=== PATIENT | male | born 1975 | race American Indian/Alaskan Native ===

== ENCOUNTER 2017-04-17 16:23 | Emergency (ER) | payer OTHER, MEDICARE ==
[2017-04-17 16:23] VITALS: BMI 27.1
== END 2017-04-17 16:43 | disposition left against medical advice (07) ==
LOC: C.ER 16:23
DX: Z02.89 Encounter for other administrative examinations (principal)

== ENCOUNTER 2018-10-11 17:27 | Emergency (ER) | payer OTHER, MEDICARE ==
[2018-10-11 17:27] VITALS: BMI 44.7
[2018-10-11 17:35] VITALS: BP 138/82; PULSE 94; RESP 18; TEMP 98.5; O2SAT 100
[2018-10-11] MEDS ORDERED: Bacitracin 500 Units/gm Oint Foilpak UD ONE (17:45)
--- NOTE | 2018-10-11 18:12 | C.PDOC ---
History Of Present Illness 43 y/o male presents to ER with RAVIN for wound check to the face. Patient states that he was evaluated and had laceration repair in [facility] ER last week. Patient reports that he called [facility] to inform them that he wanted the sutures removed. [facility] brought him to the ER for suture removal. Denies having fever,chills ,and discharge. Time Seen by Provider: 10/11/18 17:41 Chief Complaint (Nursing): Abnormal Skin Integrity History Per: Patient History/Exam Limitations: no limitations Past Medical History Reviewed: Historical Data, Nursing Documentation, Vital Signs Vital Signs: Last Vital Signs Temp 98.5 F 10/11/18 17:33 Pulse 94 H 10/11/18 17:33 Resp 18 10/11/18 17:33 BP 138/82 10/11/18 17:33 Pulse Ox 100 10/11/18 17:33 - Medical History PMH: Anxiety, Bipolar Disorder, Depression, Schizophrenia Denies: Diabetes, Hepatitis, HIV, HTN, Chronic Kidney Disease, Seizures, Sexually Transmitted Disease Other Surgeries: Hx of surgeries - [facility] Procedures APPLICATION OF SPLINT (04/09/15) DETOXIFICATION SERVICES FOR SUBSTANCE ABUSE TREATMENT (02/02/16) GROUP HEDGE FUND MANAGER FOR SUBSTANCE ABUSE TREATMENT, PSYCHOEDUCATION (02/02/16) IMMOBILIZ/WOUND ATTN NEC (04/03/15) INJECT/INFUSE ELECTROLYT (02/26/15) INJECT/INFUSE NEC (02/26/15) MEDICATION MANAGEMENT (01/16/16) PSYCHIA INTERV/EVAL NEC (08/11/13) PSYCHIAT DRUG THERAP NEC (03/22/15) Family History: States: No Known Family Hx - Social History Hx Tobacco Use: No Hx Alcohol Use: Yes Hx Substance Use: Yes (PCP) - Immunization History Hx Tetanus Toxoid Vaccination: No Hx Influenza Vaccination: No Hx Pneumococcal Vaccination: No Review Of Systems Constitutional: Negative for: Fever, Chills Physical Exam - Physical Exam Appears: Non-toxic, No Acute Distress (alert,cooperative) Skin: Warm, Dry, Other (sutures intact to left chin, edges not well approximated, no signs of redness, swelling, and discharge) Head: Normacephalic Eye(s): bilateral: Normal Inspection Nose: Normal Oral Mucosa: Moist Neck: Supple Chest: Symmetrical Cardiovascular: Rhythm Regular Neurological/Psych: Oriented x3, Normal Speech ED Course And Treatment O2 Sat by Pulse Oximetry: 100 (RA) Pulse Ox Interpretation: Normal Medical Decision Making Medical Decision Making: Sutures have been removed. Patient tolerated well. Patient has been discharged home. Disposition - Disposition Disposition: HOME/ ROUTINE Disposition Time: 17:55 Condition: IMPROVED Forms: [facility] (Sierra Leonean) - Clinical Impression Clinical Impression: Visit for suture removal - Scribe Statement The provider has reviewed the documentation as recorded by the Ralf Jeffrey Provider Attestation: All medical record entries made by the Ralf were at my direction and personally dictated by me. I have reviewed the chart and agree that the record accurately reflects my personal performance of the history, physical exam, medical decision making, and the department course for this patient. I have also personally directed, reviewed, and agree with the discharge instructions and disposition.
== END 2018-10-11 17:56 | disposition home or self-care (01) ==
LOC: C.ER 17:27
DX: Z48.02 Encounter for removal of sutures (principal)

== ENCOUNTER 2018-11-10 01:02 | Emergency (ER) | payer OTHER ==
[2018-11-10 01:02] VITALS: BMI 33.5
[2018-11-10 01:20] VITALS: O2SAT 98
--- NOTE | 2018-11-10 01:38 | C.PDOC ---
Time Seen by Provider: 11/10/18 01:38 Chief Complaint (Nursing): Back Pain Past Medical History Vital Signs: Last Vital Signs Temp 97.5 F L 11/10/18 01:11 Pulse 79 11/10/18 01:11 Resp 18 11/10/18 01:11 BP 132/82 11/10/18 01:11 Pulse Ox 98 11/10/18 01:11 - Medical History PMH: Anxiety, Bipolar Disorder, Depression, Schizophrenia Denies: Diabetes, Hepatitis, HIV, HTN, Chronic Kidney Disease, Seizures, [facility] Transmitted Disease [facility] AP[facility] OF [facility]PLINT (04/09/15) DETOXIFICATION SERVICES FOR SUBSTANCE ABUSE TREATMENT (02/02/16) GROUP BARREL HEADER FOR SUBSTANCE ABUSE TREATMENT, PSYCHOEDUCATION (02/02/16) IMMOBILIZ/WOUND ATTN NEC (04/03/15) INJECT/INFUSE ELECTROLYT (02/26/15) INJECT/INFUSE NEC (02/26/15) MEDICATION MANAGEMENT (01/16/16) PSYCHIA INTERV/EVAL NEC (08/11/13) PSYCHIAT DRUG THERAP NEC (03/22/15) Family History: States: Unknown Family Hx - Social History Hx Tobacco Use: No Hx Alcohol Use: No Hx Substance Use: Yes - Immunization History Hx Tetanus Toxoid Vaccination: No Hx Influenza Vaccination: No Hx Pneumococcal Vaccination: No ED Course And Treatment O2 Sat by Pulse Oximetry: 98 Disposition - Disposition
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
[2018-11-10 03:07] VITALS: BP 130/80; PULSE 80; RESP 20; TEMP 98
== END 2018-11-10 03:02 | disposition home or self-care (01) ==
LOC: C.ER 01:02
DX: G89.29 Other chronic pain (principal); M54.9 Dorsalgia, unspecified

== ENCOUNTER 2018-11-25 12:04 | Emergency (ER) | payer OTHER ==
[2018-11-25 12:14] VITALS: BMI 40.6
[2018-11-25 12:18] VITALS: BP 116/53; PULSE 91; TEMP 97.8; O2SAT 98
--- NOTE | 2018-11-25 12:39 | C.PDOC ---
History Of Present Illness 43 year old male with PMHx of alcohol abuse and PCP brought himself to the ED requesting to speak with a clothing trades workers. Pt offers no specific medical complaints. Pt requests to speak with a clothing trades workers and a place to stay the night. Admits to drinking alcohol today. Denies SI and HI. Time Seen by Provider: 11/25/18 12:24 Chief Complaint (Nursing): Psychiatric Evaluation History Per: Patient History/Exam Limitations: no limitations Recent travel outside of the [place]: No Past Medical History Reviewed: Historical Data, Nursing Documentation, Vital Signs Vital Signs: Last Vital Signs Temp 97.8 F 11/25/18 12:14 Pulse 91 H 11/25/18 12:14 Resp 18 11/25/18 12:14 BP 116/53 L 11/25/18 12:14 Pulse Ox 98 11/25/18 12:14 - Medical History PMH: Anxiety, Bipolar Disorder, Depression, Schizophrenia Denies: Diabetes, Hepatitis, HIV, HTN, Chronic Kidney Disease, Seizures, Sexually Transmitted Disease - [facility] Procedures APPLICATION OF SPLINT (04/09/15) DETOXIFICATION SERVICES FOR SUBSTANCE ABUSE TREATMENT (02/02/16) GROUP CAFE MANAGER FOR SUBSTANCE ABUSE TREATMENT, PSYCHOEDUCATION (02/02/16) IMMOBILIZ/WOUND ATTN NEC (04/03/15) INJECT/INFUSE ELECTROLYT (02/26/15) INJECT/INFUSE NEC (02/26/15) MEDICATION MANAGEMENT (01/16/16) PSYCHIA INTERV/EVAL NEC (08/11/13) PSYCHIAT DRUG THERAP NEC (03/22/15) Family History: States: Unknown Family Hx - Social History Hx Tobacco Use: No Hx Alcohol Use: Yes Hx Substance Use: Yes (street drugs) - Immunization History Hx Tetanus Toxoid Vaccination: No Hx Influenza Vaccination: No Hx Pneumococcal Vaccination: No Review Of Systems Except As Marked, All Systems Reviewed And Found Negative. Psych: Negative for: Suicidal ideation, Other ((-) HI. ) Physical Exam - Physical Exam Appears: Non-toxic, No Acute Distress, Other (Large muscular black male, bizzare, confrontational.) Skin: Warm, Dry Head: Atraumatic, Normacephalic Eye(s): bilateral: Normal Inspection Neck: Normal ROM, Supple Chest: Symmetrical, No Deformity Cardiovascular: Rhythm Regular, No Murmur Respiratory: Normal Breath Sounds, No Rales, No Rhonchi, No Wheezing Gastrointestinal/Abdominal: Normal Exam, Soft, No Tenderness Extremity: Bilateral: Atraumatic, Normal Color And Temperature, Normal ROM Neurological/Psych: Oriented x3, Normal Speech, Normal Cognition ED Course And Treatment O2 Sat by Pulse Oximetry: 98 (RA) Pulse Ox Interpretation: Normal Medical Decision Making Medical Decision Making: baseline psych, no acute issues confrontational and argumentative with staff with no new complaint ? underlying persistent substance abuse as well? d/c for opt f/u. Disposition Doctor Will See Patient In The: Office Counseled Patient/Family Regarding: Studies Performed, Diagnosis - Disposition Referrals: Alcoholics Anonymous [Outside] [facility] [Outside] [facility] [Outside] [facility] [Outside] [facility] [Outside] Disposition: HOME/ ROUTINE Disposition Time: 12:39 Condition: GOOD Additional Instructions: outpatient follow-up as needed avoid substance abuse Instructions: Anxiety, Adult (DC) Forms: [facility] (Italian) - Clinical Impression Clinical Impression: Anxiety - Scribe Statement The provider has reviewed the documentation as recorded by the Scribe (Desire Patel) Provider Attestation: All medical record entries made by the Scribe were at my direction and personally dictated by me. I have reviewed the chart and agree that the record accurately reflects my personal performance of the history, physical exam, medical decision making, and the department course for this patient. I have also personally directed, reviewed, and agree with the discharge instructions and disposition.
[2018-11-25 13:19] VITALS: RESP 20
== END 2018-11-25 13:19 | disposition home or self-care (01) ==
LOC: C.ER 12:04
DX: F41.9 Anxiety disorder, unspecified (principal); F20.9 Schizophrenia, unspecified; F31.9 Bipolar disorder, unspecified

== ENCOUNTER 2018-12-25 22:33 | Inpatient (IN) | payer OTHER ==
[2018-12-25 22:45] VITALS: BMI 31.3
--- NOTE | 2018-12-25 23:38 | C.PDOC ---
History Of Present Illness 43 year old male with PMHx of psych illness presents to the ED for evaluation of auditory hallucinations for the past 3 months. Patient states " I need to be bacl in my meds". Patient denies any other complaints. <Pravin Tortter - Last Filed: 12/26/18 16:26> <Jaspal Laureano - Last Filed: 12/26/18 04:12> History Per: Patient History/Exam Limitations: no limitations Onset/Duration Of Symptoms: Persistent Current Symptoms Are (Timing): Still Present Associated Symptoms: Paranoia. denies: Depression, Suicidal Thoughts, Suicidal Plan Recent travel outside of the [place]: No Additional History Per: Patient <Pravin Trotter - Last Filed: 12/26/18 16:26> Time Seen by Provider: 12/25/18 22:45 Chief Complaint (Nursing): Psychiatric Evaluation Past Medical History Vital Signs: Last Vital Signs Temp 98.2 F 12/26/18 01:47 Pulse 66 12/26/18 01:47 Resp 18 12/26/18 01:47 BP 128/69 12/26/18 01:47 Pulse Ox 100 12/26/18 01:47 - [facility] Procedures APPLICATION OF SPLINT (04/09/15) DETOXIFICATION SERVICES FOR SUBSTANCE ABUSE TREATMENT (02/02/16) GROUP DROP CLIPPER FOR SUBSTANCE ABUSE TREATMENT, PSYCHOEDUCATION (02/02/16) IMMOBILIZ/WOUND ATTN NEC (04/03/15) INJECT/INFUSE ELECTROLYT (02/26/15) INJECT/INFUSE NEC (02/26/15) MEDICATION MANAGEMENT (01/16/16) PSYCHIA INTERV/EVAL NEC (08/11/13) PSYCHIAT DRUG THERAP NEC (03/22/15) <Jaspal Laureano - Last Filed: 12/26/18 04:12> Reviewed: Historical Data, Nursing Documentation, Vital Signs Vital Signs: Last Vital Signs Temp 98.9 F 12/25/18 22:45 Pulse 71 12/25/18 22:45 Resp 19 12/25/18 22:45 BP 133/73 12/25/18 22:45 Pulse Ox 99 12/25/18 22:45 Primary Care Provider: FAMILY PROVIDER,NO - Medical History PMH: Anxiety, Bipolar Disorder, Depression, Schizophrenia Denies: Diabetes, Hepatitis, HIV, HTN, Chronic Kidney Disease, Seizures, Sexually Transmitted Disease Surgical History: No Surg Hx - [facility] Procedures APPLICATION OF SPLINT (04/09/15) DETOXIFICATION SERVICES FOR SUBSTANCE ABUSE TREATMENT (02/02/16) GROUP DROP CLIPPER FOR SUBSTANCE ABUSE TREATMENT, PSYCHOEDUCATION (02/02/16) IMMOBILIZ/WOUND ATTN NEC (04/03/15) INJECT/INFUSE ELECTROLYT (02/26/15) INJECT/INFUSE NEC (02/26/15) MEDICATION MANAGEMENT (01/16/16) PSYCHIA INTERV/EVAL NEC (08/11/13) PSYCHIAT DRUG THERAP NEC (03/22/15) Family History: States: Unknown Family Hx - Social History Hx Tobacco Use: No Hx Alcohol Use: Yes Hx Substance Use: Yes (marijuana, cocaine) - Immunization History Hx Tetanus Toxoid Vaccination: No Hx Influenza Vaccination: No Hx Pneumococcal Vaccination: No <Pravin Trotter - Last Filed: 12/26/18 16:26> Review Of Systems Constitutional: Negative for: Fever, Chills Cardiovascular: Negative for: Chest Pain Respiratory: Negative for: Shortness of Breath Gastrointestinal: Negative for: Nausea, Vomiting, Abdominal Pain Skin: Negative for: Rash Psych: Positive for: Psychosis. Negative for: Depression, Suicidal ideation <Pravin Trotter - Last Filed: 12/26/18 16:26> Physical Exam - Physical Exam Appears: Non-toxic, No Acute Distress Skin: Normal Color, Warm, Dry Head: Atraumatic, Normacephalic Eye(s): bilateral: Normal Inspection Neck: Normal ROM, Supple Chest: Symmetrical Cardiovascular: Rhythm Regular Respiratory: Normal Breath Sounds, No Rales, No Rhonchi, No Wheezing Extremity: Normal ROM, No Tenderness, No Swelling Neurological/Psych: Oriented x3, Normal Speech, Normal Cognition Gait: Steady <Pravin Trotter - Last Filed: 12/26/18 16:26> ED Course And Treatment - Laboratory Results Result Diagrams: 12/25/18 23:58 12/25/18 23:58 Lab Results: Total Bilirubin 0.4 mg/dL (0.2-1.3) 12/25/18 23:58 AST 45 U/L (17-59) 12/25/18 23:58 ALT 40 U/L (21-72) 12/25/18 23:58 Alkaline Phosphatase 69 U/L (38-126) 12/25/18 23:58 Total Protein 8.0 g/dL (6.3-8.3) 12/25/18 23:58 Albumin 4.2 g/dL (3.5-5.0) 12/25/18 23:58 Globulin 3.7 gm/dL (2.2-3.9) 12/25/18 23:58 Albumin/Globulin Ratio 1.1 (1.0-2.1) 12/25/18 23:58 Urine Color Yellow (YELLOW) 12/25/18 23:58 Urine Clarity Hazy (Clear) 12/25/18 23:58 Urine pH 7.0 (5.0-8.0) 12/25/18 23:58 Ur Specific [place] 1.021 (1.003-1.030) 12/25/18 23:58 Urine Protein Negative mg/dL (NEGATIVE) 12/25/18 23:58 Urine Glucose (UA) Normal mg/dL (Normal) 12/25/18 23:58 Urine Ketones Negative mg/dL (NEGATIVE) 12/25/18 23:58 Urine Blood Negative (NEGATIVE) 12/25/18 23:58 Urine Nitrate Negative (NEGATIVE) 12/25/18 23:58 Urine Bilirubin Negative (NEGATIVE) 12/25/18 23:58 Urine Urobilinogen 2.0 mg/dL (0.2-1.0) 12/25/18 23:58 Ur Leukocyte Esterase 3+ Gabriella/uL (Negative) H 12/25/18 23:58 Urine WBC (Auto) 432 /hpf (0-5) H 12/25/18 23:58 Urine RBC (Auto) 3 /hpf (0-3) 12/25/18 23:58 Urine Bacteria Mod (<OCC) H 12/25/18 23:58 Urine Yeast (Budding) Few /hpf (NEGATIVE) H 12/25/18 23:58 <Jaspal Laureano - Last Filed: 12/26/18 04:12> - Laboratory Results Result Diagrams: 12/25/18 23:58 12/25/18 23:58 O2 Sat by Pulse Oximetry: 99 (ON RA) Pulse Ox Interpretation: Normal <Pravin Trotter - Last Filed: 12/26/18 16:26> Medical Decision Making Medical Decision Making: Plan: * Labs * UA enodrsed pending med clearacne and crisis eval. <Pravin Trotter - Last Filed: 12/26/18 16:26> Disposition Discussed With Dr.: Carson Tejeda Comment: accepted the pt onhis service and took over the care at 4:12 AM Doctor Will See Patient In The: Hospital Counseled Patient/Family Regarding: Studies Performed, Diagnosis - Disposition Disposition Time: 01:00 - POA Present On Arrival: None <Jaspal Laureano - Last Filed: 12/26/18 04:12> <Pravin Trotter - Last Filed: 12/26/18 16:26> - Disposition Disposition: HOSPITALIZED Condition: FAIR - Clinical Impression Clinical Impression: Schizophrenia, Phencyclidine (PCP) use disorder, severe - Scribe Statement The provider has reviewed the documentation as recorded by the Scribe Uzair Brewster All medical record entries made by the Scribe were at my direction and personally dictated by me. I have reviewed the chart and agree that the record accurately reflects my personal performance of the history, physical exam, medical decision making, and the department course for this patient. I have also personally directed, reviewed, and agree with the discharge instructions and disposition. <Pravin Trotter - Last Filed: 12/26/18 16:26> Decision To Admit - Pt Status Changed To: Hospital Disposition Of: Inpatient - Admit Certification Admit to Inpatient:: After my assessment, the patient will require hospitalization for at least two midnights. This is because of the severity of symptoms shown, intensity of services needed, and/or the medical risk in this patient being treated as an outpatient. - InPatient: Physician Admission Certification: I certify that this patient requires 2 or mor e midnights of care for the following reason:: After my assessment, the patient will require hospitalization for at least two midnights. This is because of the severity of symptoms shown, intensity of services needed, and/or the medical risk in this patient being treated as an outpatient. - . Bed Request Type: Psychiatry Admitting Physician: Carson Tejeda <Jaspal Laureano - Last Filed: 12/26/18 04:12> <Pravin Trotter - Last Filed: 12/26/18 16:26> - . Patient Diagnosis: Schizophrenia, Phencyclidine (PCP) use disorder, severe
[2018-12-26 00:07] LABS: BASO % 0.6 % (0.0-2.0); EOS # 0.1 K/uL (0.0-0.7); EOS % 1.9 % (0.0-4.0); HEMOGLOBIN 13.2 g/dL (12.0-18.0); LYMPH # 1.7 K/uL (1.0-4.3); LYMPH % 30.1 % (20.0-40.0); MEAN CELL VOLUME 84.4 fL (80.0-94.0); MEAN CORPUSCULAR HEMOGLOBIN 27.8 pg (27.0-31.0); MONO # 0.8 K/uL (0.0-0.8); MONO % 13.4 % (0.0-10.0); NEUT # 3.1 K/uL (1.8-7.0); NRBC % 0.1 % (0.0-2.0); RBC 4.76 Mil/uL (4.40-5.90); RED CELL DISTRIBUTION WIDTH 14.1 % (11.5-14.5); WHITE BLOOD COUNT 5.7 K/uL (4.8-10.8)
[2018-12-26 00:26] LABS: ALB/GLOB RATIO 1.1 (1.0-2.1); ALBUMIN 4.2 g/dL (3.5-5.0); ALT/SGPT 40 U/L (21-72); AST/SGOT 45 U/L (17-59); BLOOD UREA NITROGEN 19 mg/dL (9-20); CALCIUM 9.6 mg/dl (8.6-10.4); GFR NON-AFRICAN AMERICAN > 60
[2018-12-26 00:39] LABS: URINE BACTERIA MOD (<OCC); URINE BILIRUBIN NEGATIVE (NEGATIVE); URINE BLOOD NEGATIVE (NEGATIVE); URINE CLARITY Hazy (Clear); URINE COLOR Yellow (YELLOW); URINE GLUCOSE (UA) NORMAL (Normal); URINE LEUKOCYTE ESTERASE 3+ Leu/uL (Negative); URINE PROTEIN NEGATIVE (NEGATIVE)
[2018-12-26 00:40] LABS: BARBITURATES, UR NEGATIVE (NEGATIVE); BENZODIAZEPINES, UR NEGATIVE (NEGATIVE); OPIATES, UR NEGATIVE (NEGATIVE)
[2018-12-26 01:07] LABS: PHENCYCLIDINE, UR POSITIVE (NEGATIVE)
--- NOTE | 2018-12-26 06:04 | PCM.BM ---
<Chris Paredes Zo - Last Filed: 12/26/18 05:59> Treatment Plan Problems - Problems identified on initial assessmt Altered Thought Process Date Initiated: 12/26/18 Time Initiated: 04:50 Assessment reference: NA Status: Active Command/Auditory Hallucinations Date Initiated: 12/26/18 Time Initiated: 04:50 Assessment reference: NA Status: Active (Contracted for safety) Treatment assets and liabiliti Patient Assests: cooperative, negotiates basic needs, good interpersonal skills Patient Liabilities: live alone, substance abuse - Milieu Protocol Maintain good personal hygiene: daily Encourage regular showers, daily Remind patient to perform daily oral care, daily Assist patient to perform ADL's Conduct patient checks and document Observation sheet: Q15 minutes Maintain personal safety: every shift Educate patient to report safety concerns to staff, every shift Monitor environment for contraband/sharps Medication safety: Monitor for expected outcome, potential side effects: every shift, Assess barriers to learning: every shift, Assess readiness for medication education: every shift <Yolanda Contreras - Last Filed: 12/27/18 10:34> - Diagnosis (1) Schizoaffective disorder Status: Acute Interventions: 12/27/18 10:34 * Assess/adjust medications daily and /or as needed * See patient on an individual basis 7x/week to assess status of hallucinations * Discuss risks, benefits, side effects and alternatives of medications * <Fany Byrnes - Last Filed: 12/29/18 09:54> Family Contact Family involvement: Family/SO is involved Family contact: Patient declines to allow family contact at present - Goals for Treatment Patient goals for treatment: "I need the right meds." Discharge/Continuing Care - Education Needs Education Needs: Patient Medication, Patient Coping Skills, Patient Placement options, Patient Community resources - Discharge Discharge Criteria: Tolerates medication w/o severe side effects, No longer exhibiting s/s of withdrawal, Reduction of target symptoms Discharge to:: Alf - Treatment Team Participation Discussed with Family/SO: No Was Patient/Family/SO present at Treatment Team Meeting: Yes
--- NOTE | 2018-12-26 12:03 | PCM.PSYCH ---
Initial Psychiatric Evaluation - Initial Psychiatric Evaluation Type of Admission: Voluntary Legal Status: Capacity History of Present Illness and Precipitating Events: Patient is a 43 years old -Filipino male, who was brought in by EMS to the [facility] ED because of hearing voices and disorganized behavior. Patient reports history of schizoaffective disorder. He reports history of multiple inpatient psychiatric hospitalizations. He was last discharged from [facility] few years ago. He was last discharged from [facility] 2 months ago. Patient remained a poor historian. He was superficially cooperative but guarded about the details. Patient remained disorganized and internally preoccupied throughout the interview. He continued to have loose associations. When asked came who brought what brought him to the hospital. He continued to make unrelated statements regarding his 'legs burning' and 'chest hurting'. He appeared to be internally preoccupied and he was responding to internal stimuli. He reports auditory hallucinations telling him to hurt himself and hurt others. He also reports of paranoia. He reports irritability, and agitation. He remained bizarre and psychotic throughout the interview. He denies any substance abuse. However urinary toxicology came positive with PCP and marijuana. PMH: None reported Current Medications: Active Medications Generic Name Dose Route Start Last Admin Trade Name Freq PRN Reason Stop Dose Admin Hydroxyzine HCl 25 mg 12/26/18 05:39 Atarax PO Q6 PRN Anxiety Pneumococcal Polyvalent Vaccine 0.5 ml 12/29/18 10:00 Pneumovax 23 Vaccine IM 12/29/18 10:01 .ONCE ONE Past Psychiatric History - Past Psychiatric History Previous Treatment History: Inpatient Pertinent Medical Hx (Current Medical&Sleep Prob, Allergies): Allergies Allergy/AdvReac Type Severity Reaction Status Date / Time amoxicillin Allergy RASH Verified 12/25/18 22:44 seasonal Allergy ANAPHYLAXIS Uncoded 12/25/18 22:44 Unobtainable 12/26/18 Review of Systems - Review of Systems All systems: reviewed and no additional remarkable complaints except - Psychiatric Psychiatric: Anxiety, Auditory Hallucinations, Irritability, Mood Swings Mental Status Examination - Personal Presentation Personal Presentation: Looks stated age - Affect Affect: Broad - Motor Activity Motor Activity: Psychomotor Agitation - Reliability in Providing Information Reliability in Providing Information: Poor, due to alteration in thoughts, Poor, due to altered mood - Speech Speech: Disorganized - Mood Mood: Anxious - Formal Thought Process Formal Thought Process: Hallucinations, Delusions, Paranoia, Loosening of associations, Flight of ideas - Hallucinations/Delusions Hallucinations: Auditory Delusions: Persecution - Obsessions/Compulsions Obsessions: No Compulsions: No - Cognitive Functions Orientation: Person, Place, Situation, Time Sensorium: Alert Attention/Concentration: Attentive Abstract Thinking: [place] Estimate of Intelligence: Below average Judgement: Imparied, as evidence by: Poor judgement, Imparied, as evidence by: Lack of insight into illness - Risk Risk: Suicidal, Diminished functioning - Limitations Limitations: Living alone DSM 5 DX - DSM 5 DSM 5 Diagnosis: Schizoaffective disorder bipolar type PCP use disorder severe Cannabis use disorder severe - Recommended/Plan of Treatment Treatment Recommendations and Plan of Treatment: Schizoaffective disorder bipolar type PCP use disorder severe Cannabis use disorder severe CBT Supportive therapy and group therapy Trazodone for insomnia Hydroxyzine for anxiety Klonopin for anxiety Olanzapine for psychosis Depakote for mood stabilization - Smoking Cessation Smoking Cessation Initiated: No
[2018-12-26 16:26] VITALS: O2SAT 99
[2018-12-26] MEDS ORDERED: Divalproex 250 mg DR Tab PO SCH (18:00)
[2018-12-27 08:59] VITALS: RESP 18
[2018-12-27] MEDS: Divalproex 500 mg DR Tab PO SCH ×2 (09:24→18:34)
--- NOTE | 2018-12-27 10:35 | PCM.PYCHPN ---
Psychiatric Progress Note - Psychiatric Progress Note Patient seen today, length of contact: 15 min Patient Chief Complaint: vannesa Problems Identified/Issues Discussed: Patient seen and evaluated, chart reviewed and discussed with the nurse. Patient remained disorganized and internally preoccupied. Patient remained isolated, confined and withdrawn. He still reports of hearing voices. Patient still appears paranoid and delusional. He is taking medications and denies any side effects Symptoms are improving but he needs more time for stabilization. Supportive therapy and psychoeducation were given. Medication Change: Yes Medical Record Reviewed: Yes Mental Status Examination - Cognitive Function Orientation: Person, Place, Situation, Time Memory: Intact Attention: WNL Concentration: Poor Association: Loose Fund of Knowledge: WNL - Mood Mood: Anxious - Affect Affect: Broad - Speech Speech: Soft - Formal Thought Process Formal Thought Process: Hallucinations, Delusions, Paranoia, Loosening of associations - Suicidal Ideation Suicidal Ideation: No - Homicidal Ideation Homicidal Ideation: No Goal/Treatment Plan - Goal/Treatment Plan Need for Continued Stay: Remain at risks for inpatient hospitalization Progress Toward Problem(s) and Goals/Treatment Plan: Schizoaffective disorder bipolar type PCP use disorder severe Cannabis use disorder severe CBT Supportive therapy and group therapy Trazodone for insomnia Hydroxyzine for anxiety Klonopin for anxiety Olanzapine for psychosis Depakote for mood stabilization
[2018-12-28] MEDS: Divalproex 500 mg DR Tab PO SCH ×2 (09:10→18:24)
[2018-12-29 06:53] VITALS: BP 102/69; PULSE 97; TEMP 97.2
--- NOTE | 2018-12-29 08:57 | PCM.PYCHPN ---
Psychiatric Progress Note - Psychiatric Progress Note Patient seen today, length of contact: 15 min Patient Chief Complaint: I am feeling little better.' Problems Identified/Issues Discussed: Patient seen and evaluated, chart reviewed and discussed with the nurse. Patient appears more organized and less paranoid. Patient remained isolated, confined and withdrawn. He reports improvement in the voices. He is taking medications and denies any side effects Symptoms are improving but he needs more time for stabilization. Supportive therapy and psychoeducation were given. Medication Change: Yes Medical Record Reviewed: Yes Mental Status Examination - Cognitive Function Orientation: Person, Place, Situation, Time Memory: Intact Attention: WNL Concentration: WNL Association: Loose Fund of Knowledge: WNL - Mood Mood: Anxious - Affect Affect: Broad - Speech Speech: Soft - Formal Thought Process Formal Thought Process: Loosening of associations - Suicidal Ideation Suicidal Ideation: No - Homicidal Ideation Homicidal Ideation: No Goal/Treatment Plan - Goal/Treatment Plan Need for Continued Stay: Remain at risks for inpatient hospitalization Progress Toward Problem(s) and Goals/Treatment Plan: Schizoaffective disorder bipolar type PCP use disorder severe Cannabis use disorder severe CBT Supportive therapy and group therapy Trazodone for insomnia Hydroxyzine for anxiety Klonopin for anxiety Olanzapine for psychosis Depakote for mood stabilization
[2018-12-29] MEDS: Divalproex 500 mg DR Tab PO SCH (09:59)
[2018-12-29] MEDS ORDERED: Pneumococcal 23-Valent Vaccine IM ONE (10:00)
--- NOTE | 2018-12-29 10:38 | PCM.PYCHDC ---
Mental Status Examination - Mental Status Examination Orientation: Person, Place, Situation, Time Memory: Intact Mood: Neutral Affect: Constricted Speech: Soft Attention: WNL Concentration: WNL Association: WNL Fund of Knowledge: WNL Formal Thought Process: No Impairment Description of patient's judgement and insight: good, fair Psychotic Thoughts and Behaviors: denies any AVH Suicidal Ideation: No Current Homicidal Ideation?: No Discharge Summary - Discharge Note Reason for Hospitalization: Patient is a 43 years old -Gambian male, who was brought in by EMS to the [facility] ED because of hearing voices and disorganized behavior. Patient reports history of schizoaffective disorder. He reports history of multiple inpatient psychiatric hospitalizations. He was last discharged from [facility] few years ago. He was last discharged from [facility] 2 months ago. Patient remained a poor historian. He was superficially cooperative but guarded about the details. Patient remained disorganized and internally preoccupied throughout the interview. He continued to have loose associations. When asked came who brought what brought him to the hospital. He continued to make unrelated statements regarding his 'legs burning' and 'chest hurting'. He appeared to be internally preoccupied and he was responding to internal stimuli. He reports auditory hallucinations telling him to hurt himself and hurt others. He also reports of paranoia. He reports irritability, and agitation. He remained bizarre and psychotic throughout the interview. He denies any substance abuse. However urinary toxicology came positive with PCP and marijuana. Consultations:: List each consultation separately and include: 1. Reason for request. 2. Findings. 3. Follow-up Summary of Hospital Course include:: 1. Description of specific treatment plan utilized for patients during their course of treatmen. 2. Summarize the time- course for resolution of acute symptoms and/or regressed behaviors. 3. Describe issues identified and worked on during hospitalization. 4. Describe medication utilized. 5. Describe medical problems identified and treated. 6. Reassessment of suicide risk Summary of Hospital Course: Patient is a 43 years old -G[place]ian male, who was brought in by EMS to the [facility] ED because of hearing voices and disorganized behavior. Patient reports history of schizoaffective disorder. He reports history of multiple inpatient psychiatric hospitalizations. He was last discharged from [facility] few years ago. He was last discharged from [facility] 2 months ago. Patient remained a poor historian. He was superficially cooperative but guarded about the details. Patient remained disorganized and internally preoccupied throughout the interview. He continued to have loose associations. When asked came who brought what brought him to the hospital. He continued to make unrelated statements regarding his 'legs burning' and 'chest hurting'. He appeared to be internally preoccupied and he was responding to internal stimuli. He reports auditory hallucinations telling him to hurt himself and hurt others. He also reports of paranoia. He reports irritability, and agitation. He remained bizarre and psychotic throughout the interview. He denies any substance abuse. However urinary toxicology came positive with PCP and marijuana. PMH: None reported - Diagnosis (1) Schizoaffective disorder Current Visit: Yes Status: Acute - Final Diagnosis (DSM 5) Condition upon Discharge: FAIR DSM 5: Schizoaffective disorder bipolar type PCP use disorder severe Cannabis use disorder severe Disposition: HOME/ ROUTINE Follow-up Treatment Plan: Schizoaffective disorder bipolar type PCP use disorder severe Cannabis use disorder severe CBT Supportive therapy and group therapy Trazodone for insomnia Hydroxyzine for anxiety Klonopin for anxiety Olanzapine for psychosis Depakote for mood stabilization Prescriptions/Medication Reconciliation: clonazePAM [Klonopin] 1 mg PO BID #20 tab Divalproex [Depakote DR] 500 mg PO BID #60 tcp Olanzapine [Zyprexa] 5 mg PO BID #60 tablet Oxybutynin [Ditropan Tab] 5 mg PO TID #30 tab - Smoking Cessation Smoking Cessation Medication prescribed: No - Antipsychotic Medications Pt discharged on 2 or more routine antipsychotic medications: No
== END 2018-12-29 11:39 | disposition home or self-care (01) | DRG 885 ==
LOC: C.ER 22:33 → C.5E 12-26 04:11
PROC: GZHZZZZ Group Psychotherapy (ICD-10-PCS; principal; 2018-12-26)
PROC: GZ56ZZZ Individual Psychotherapy, Supportive (ICD-10-PCS; 2018-12-26)
DX: F25.0 Schizoaffective disorder, bipolar type (principal); F41.9 Anxiety disorder, unspecified; G47.00 Insomnia, unspecified; F16.10 Hallucinogen abuse, uncomplicated; F12.10 Cannabis abuse, uncomplicated

== ENCOUNTER 2019-01-01 02:41 | Emergency (ER) | payer OTHER ==
[2019-01-01 02:42] VITALS: BMI 31.3
--- NOTE | 2019-01-01 03:15 | C.PDOC ---
History Of Present Illness Patient brought in by EMS to the ED for evaluation. As per EMS patient was found in [place]. Patient denies SI/HI, hallucinations, other medical complaints. Time Seen by Provider: 01/01/19 03:15 Chief Complaint (Nursing): Lower Extremity Problem/Injury History Per: Patient, EMS History/Exam Limitations: no limitations Onset/Duration Of Symptoms: Hrs Recent travel outside of the [place]: No Additional History Per: Patient, EMS Past Medical History Reviewed: Historical Data, Nursing Documentation, Vital Signs Vital Signs: Last Vital Signs Temp 98.8 F 01/01/19 02:49 Pulse 89 01/01/19 02:49 Resp 18 01/01/19 02:49 BP 149/97 H 01/01/19 02:49 Pulse Ox 99 01/01/19 02:49 Primary Care Provider: FAMILY PROVIDER,NO - Medical History PMH: Anxiety, Bipolar Disorder, Depression, Schizophrenia Denies: Diabetes, Hepatitis, HIV, HTN, Chronic Kidney Disease, Seizures, Sexually Transmitted Disease Surgical History: No Surg Hx - [facility] Procedures APPLICATION OF SPLINT (04/09/15) DETOXIFICATION SERVICES FOR SUBSTANCE ABUSE TREATMENT (02/02/16) 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 TREATMENT, PSYCHOEDUCATION (02/02/16) IMMOBILIZ/WOUND ATTN NEC (04/03/15) INJECT/INFUSE ELECTROLYT (02/26/15) INJECT/INFUSE NEC (02/26/15) MEDICATION MANAGEMENT (01/16/16) PSYCHIA INTERV/EVAL NEC (08/11/13) PSYCHIAT DRUG THERAP NEC (03/22/15) Family History: States: Unknown Family Hx - Social History Hx Tobacco Use: No Hx Alcohol Use: Yes Hx Substance Use: Yes (PCP) - Immunization History Hx Tetanus Toxoid Vaccination: No Hx Influenza Vaccination: No Hx Pneumococcal Vaccination: No Review Of Systems Constitutional: Negative for: Fever, Chills Cardiovascular: Negative for: Chest Pain Respiratory: Negative for: Shortness of Breath Gastrointestinal: Negative for: Vomiting, Abdominal Pain Skin: Negative for: Rash Psych: Negative for: Depression, Suicidal ideation Physical Exam - Physical Exam Appears: Non-toxic, No Acute Distress Skin: Warm, Dry Head: Normacephalic Eye(s): bilateral: Normal Inspection Neck: Supple Chest: Symmetrical Cardiovascular: Rhythm Regular Respiratory: No Rales, No Rhonchi, No Wheezing Extremity: Bilateral: Atraumatic, Normal Color And Temperature, Normal ROM Neurological/Psych: Oriented x3, Other (bizarre affect) Gait: Unsteady ED Course And Treatment O2 Sat by Pulse Oximetry: 99 (On RA) Pulse Ox Interpretation: Normal Progress Note: Patient was cleared for discharge by dr clayton/ Follow up at [facility] Disposition Counseled Patient/Family Regarding: Studies Performed, Diagnosis, Need For Followup - Disposition Disposition: HOME/ ROUTINE Disposition Time: 03:15 Condition: FAIR Additional Instructions: Please follow up with [facility] Instructions: Schizoaffective Disorder (DC) Forms: [employer] ([place]) - Clinical Impression Clinical Impression: Schizoaffective disorder, PCP abuse - Scribe Statement The provider has reviewed the documentation as recorded by the Scribe Uzair Brewster All medical record entries made by the Scribe were at my direction and personally dictated by me. I have reviewed the chart and agree that the record accurately reflects my personal performance of the history, physical exam, medical decision making, and the department course for this patient. I have also personally directed, reviewed, and agree with the discharge instructions and disposition.
[2019-01-01 05:40] VITALS: BP 141/88; PULSE 93; RESP 20; TEMP 98.2; O2SAT 100
== END 2019-01-01 05:39 | disposition home or self-care (01) ==
LOC: C.ER 02:41
DX: F25.9 Schizoaffective disorder, unspecified (principal); F16.10 Hallucinogen abuse, uncomplicated

== ENCOUNTER 2019-01-05 22:17 | Emergency (ER) | payer OTHER | END 2019-01-05 23:31 | disposition home or self-care (01) | LOC: C.ER 22:17 ==